=== PATIENT | female | born 1990 | race American Indian/Alaskan Native ===

== ENCOUNTER 2018-12-18 03:39 | Emergency (ER) | payer OTHER ==
[2018-12-18] MEDS ORDERED: BSS ONE ×2 (04:00→04:02)
[2018-12-18] MEDS ORDERED: FUL-GLO OP ONE ×3 (04:00→04:17)
[2018-12-18] MEDS ORDERED: TETRACAINE 0.5% ONE (04:02)
[2018-12-18 04:19] VITALS: BP 127/82
--- NOTE | 2018-12-18 04:23 | Emergency Department Report ---
Eye Injury/Foreign Body - HPI Duration: 2 Days Eye Location: Left Severity: Mild Tetanus Status: Up to Date Eye Symptoms: Eye Pain: Yes (eye latch in eye ), Blurred Vision: No, Eye Redness: Yes, Used Eye Protection: No, Contact Lens Use: No, Recalls Injury: No, Photophobia: No Other History: pt is a 28 y/o aaf who presents for left eye pain erythema secondary to eyelatch in eye pt states she remove latch but feels irritation nad burning since. there is no loss or decrease in vison no purulent drainage no swelling visual aqcuity is 20/20 bilat ED Review of Systems ROS: Stated complaint: LEFT EYE SWOLLEN Other details as noted in HPI Constitutional: denies: chills, fever Eyes: eye pain, eye discharge, other (redness ) ENT: denies: ear pain, throat pain Respiratory: denies: cough, shortness of breath, wheezing Cardiovascular: denies: chest pain, palpitations Endocrine: no symptoms reported Gastrointestinal: denies: abdominal pain, nausea, vomiting, diarrhea Genitourinary: denies: urgency, dysuria, discharge Musculoskeletal: denies: back pain, joint swelling, arthralgia Skin: denies: rash, lesions Neurological: denies: headache, weakness, paresthesias Psychiatric: denies: anxiety, depression Hematological/Lymphatic: denies: easy bleeding, easy bruising ED Past Medical Hx - Past Medical History Previous Medical History?: Yes Hx Headaches / Migraines: Yes (Topamaxx) - Surgical History Past Surgical History?: No - Social History Smoking Status: Never Smoker - Medications Home Medications: Home Medications Medication Instructions Recorded Confirmed Last Taken Type Acetaminophen [Acetaminophen TAB] 1,000 mg PO Q6HR PRN 7 Days #30 12/18/18 Unknown Rx tablet Ibuprofen [Motrin 800 MG tab] 800 mg PO Q8HR PRN #30 tablet 12/18/18 Unknown Rx Ketotifen Fumarate [Zaditor] 2 drops OP DAILY PRN 10 Days #5 12/18/18 Unknown Rx drops Ofloxacin 0.3% [Ocuflox 0.3% opth] 500 drops OP Q3H 10 Days #1 bottle 12/18/18 Unknown Rx Eye Injury Exam - Exam General: Vital signs noted. No distress. Alert and acting appropriately. - Visual Acuity Bilateral Vision Acuity Degree: 20/20 Eye Exam: Left Injection, Left Mucous Discharge, Left Fluorescein Uptake, Both EOMI, Neither Chemosis, Neither Abnormal Pupil, Neither Eye Foreign Body, Neither Lid Foreign Body, Neither Purulent Discharge, Neither Corneal Edema, Neither Photophobia Exam: left eye small corneal abrsion Left Vision Acuity Degree: 20/50 Right Vision Acuity Degree: 20/20 ED Course Vital Signs 12/18/18 03:44 Temperature 98.0 F Pulse Rate 90 Respiratory 18 Rate Blood Pressure 127/82 O2 Sat by Pulse 99 Oximetry ED Medical Decision Making - Medical Decision Making this is conjunctivitis left no increase IOP, visual acuity 20/20 bilat, moderater left conjunctivae erythema no swelling eyelid inverted and swept, mild clear drainage there is no feve no chills no symptoms. Critical care attestation.: If time is entered above; I have spent that time in minutes in the direct care of this critically ill patient, excluding procedure time. ED Disposition Clinical Impression: Cornea abrasion Qualifiers: Encounter type: initial encounter Laterality: left Qualified Code(s): S05.02XA - Injury of conjunctiva and corneal abrasion without foreign body, left eye, initial encounter Conjunctivitis Qualifiers: Conjunctivitis type: acute Acute conjunctivitis type: unspecified Laterality: left Qualified Code(s): H10.32 - Unspecified acute conjunctivitis, left eye Disposition: TO HOME OR SELFCARE Is pt being admited?: No Does the pt Need Aspirin: No Condition: Stable Instructions: Conjunctivitis (ED), Corneal Abrasion (ED) Prescriptions: Acetaminophen [Acetaminophen TAB] 1,000 mg PO Q6HR PRN 7 Days #30 tablet PRN Reason: Pain , Severe (7-10) Ibuprofen [Motrin 800 MG tab] 800 mg PO Q8HR PRN #30 tablet PRN Reason: pain Ofloxacin 0.3% [Ocuflox 0.3% opth] 500 drops OP Q3H 10 Days #1 bottle Ketotifen Fumarate [Zaditor] 2 drops OP DAILY PRN 10 Days #5 drops PRN Reason: . Forms: Work/School Release Form(ED) Time of Disposition: 04:41
== END 2018-12-18 04:55 | disposition home or self-care (01) ==
LOC: ED 03:39
DX: S05.02XA Injury of conjunctiva and corneal abrasion without foreign body, left eye, initial encounter (principal); H10.32 Unspecified acute conjunctivitis, left eye; G43.909 Migraine, unspecified, not intractable, without status migrainosus; Z79.1 Long term (current) use of non-steroidal anti-inflammatories (NSAID); Z79.899 Other long term (current) drug therapy; X58.XXXA Exposure to other specified factors, initial encounter; Y93.89 Activity, other specified; Y92.89 Other specified places as the place of occurrence of the external cause; Y99.8 Other external cause status
CPT/HCPCS: 99283

== ENCOUNTER 2019-01-16 21:19 | Emergency (ER) | payer OTHER ==
[2019-01-16 21:29] VITALS: BP 142/80
[2019-01-16] MEDS ORDERED: MORPHINE IV ONE (22:27)
[2019-01-16] MEDS ORDERED: ZOFRAN IV ONE (22:27)
[2019-01-16] MEDS ORDERED: NACL 0.9% 1000 ML 1,000 ML IV ONE (22:28)
--- NOTE | 2019-01-16 22:40 | Emergency Department Report ---
ED General Adult HPI - General Chief complaint: Animal Bite Stated complaint: INSECT BITE Time Seen by Provider: 01/16/19 22:26 Source: patient Mode of arrival: Ambulatory Limitations: No Limitations - History of Present Illness Initial comments: 28-year-old -[place] female presents to the emergency room for spider bite to the right upper thigh 4 days. Patient reports pain is sensitive to touch feels like it's burning. Patient has a past medical history of migraines. Currently takes no medications on a daily basis and has an allergy to a moxicillin. Onset/Timin -: days(s) Location: lower extremity Severity scale (0 -10): 10 Quality: burning, stabbing, aching, sharp Consistency: constant Improves with: none Worsens with: none Associated Symptoms: denies other symptoms Treatments Prior to Arrival: none - Related Data Previous Rx's Medication Instructions Recorded Last Taken Type Acetaminophen [Acetaminophen TAB] 1,000 mg PO Q6HR PRN 7 Days #30 12/18/18 Unknown Rx tablet Ibuprofen [Motrin 800 MG tab] 800 mg PO Q8HR PRN #30 tablet 12/18/18 Unknown Rx Ketotifen Fumarate [Zaditor] 2 drops OP DAILY PRN 10 Days #5 12/18/18 Unknown Rx drops Ofloxacin 0.3% [Ocuflox 0.3% opth] 500 drops OP Q3H 10 Days #1 bottle 12/18/18 Unknown Rx Acetaminophen/Codeine [Tylenol 1 tab PO Q6H PRN #12 tab 01/17/19 Unknown Rx /Codeine # 3 tab] DOXYCYCLINE Hyclate [Vibramycin 100 mg PO Q12HR #20 capsule 01/17/19 Unknown Rx CAP] Allergies Allergy/AdvReac Type Severity Reaction Status Date / Time amoxicillin AdvReac Itching Verified 01/16/19 21:21 ED Review of Systems ROS: Stated complaint: INSECT BITE Other details as noted in HPI Comment: All other systems reviewed and negative ED Past Medical Hx - Past Medical History Previous Medical History?: Yes Hx Headaches / Migraines: Yes (Topamaxx) - Surgical History Past Surgical History?: Yes - Social History Smoking Status: Never Smoker Substance Use Type: None - Medications Home Medications: Home Medications Medication Instructions Recorded Confirmed Last Taken Type Acetaminophen [Acetaminophen TAB] 1,000 mg PO Q6HR PRN 7 Days #30 12/18/18 Unknown Rx tablet Ibuprofen [Motrin 800 MG tab] 800 mg PO Q8HR PRN #30 tablet 12/18/18 Unknown Rx Ketotifen Fumarate [Zaditor] 2 drops OP DAILY PRN 10 Days #5 12/18/18 Unknown Rx drops Ofloxacin 0.3% [Ocuflox 0.3% opth] 500 drops OP Q3H 10 Days #1 bottle 12/18/18 Unknown Rx Acetaminophen/Codeine [Tylenol 1 tab PO Q6H PRN #12 tab 01/17/19 Unknown Rx /Codeine # 3 tab] DOXYCYCLINE Hyclate [Vibramycin 100 mg PO Q12HR #20 capsule 01/17/19 Unknown Rx CAP] ED Physical Exam - General Limitations: No Limitations General appearance: alert, in no apparent distress - Head Head exam: Present: atraumatic, normocephalic - Eye Eye exam: Present: normal appearance - ENT ENT exam: Present: mucous membranes moist - Respiratory Respiratory exam: Present: normal lung sounds bilaterally. Absent: respiratory distress - Cardiovascular Cardiovascular Exam: Present: tachycardia - Neurological Exam Neurological exam: Present: alert, oriented X3 - Psychiatric Psychiatric exam: Present: normal affect, normal mood - Expanded Skin Exam Expanded Type of lesion: Present: abscess Distribution of rash: RLE (anterior thigh) Description of rash: Present: tenderness, erythematous, swelling, fluctuant, indurated, other (Center of wound is necrotic) ED Course Vital Signs 01/16/19 01/16/19 01/16/19 21:26 23:13 23:43 Temperature 98.4 F Pulse Rate 96 H Respiratory 18 16 16 Rate Blood Pressure 142/80 O2 Sat by Pulse 100 Oximetry - I & D Right Anterior Thigh Blade Size: 11 I & D Procedure: betadine prep, sterile drapes applied, sterile dressing applied Progress: Patient tolerated procedure well. ED Medical Decision Making - Lab Data Result diagrams: 01/16/19 22:30 01/16/19 22:30 - Medical Decision Making 28-year-old female comes in for spider bite to the right upper thigh. Appears to have necrotic center. Had Dr. Lynn attending M.D. in ER to come and evaluate patient. Basic labs has been placed with ESR and lactic acid as well as normal saline and Zofran and morphine for pain management. Patient was given 600 mg of clindamycin 1 mg of Ativan morphine 4 mg Zofran 4 mg INT right thigh. Patient be discharged home on doxycycline Tylenol 3 she has ibuprofen at home. Patient be referred to Wound Care clinic. Critical care attestation.: If time is entered above; I have spent that time in minutes in the direct care of this critically ill patient, excluding procedure time. ED Disposition Clinical Impression: Cellulitis of third toe, right Disposition: [id number] TO HOME OR SELFCARE Is pt being admited?: No Does the pt Need Aspirin: No Condition: Stable Additional Instructions: Completes her antibiotics as prescribed. Pain medication as needed. You can follow up at the wound clinic I have listed their information below. Prescriptions: Acetaminophen/Codeine [Tylenol /Codeine # 3 tab] 1 tab PO Q6H PRN #12 tab PRN Reason: Pain , Severe (7-10) DOXYCYCLINE Hyclate [Vibramycin CAP] 100 mg PO Q12HR #20 capsule Referrals: ANTONELLA OSBORNE MD [Primary Care Provider] - 3-5 Days [facility] [Outside] - 3-5 Days
[2019-01-16 22:58] LABS: Hematocrit 37.5 % (30.3-42.9); Hemoglobin 12.9 gm/dl (10.1-14.3); Mean Corpuscular HGB Conc 34 % (30-34); Mean Corpuscular Volume 99 fl (79-97); Platelet Count 287 K/mm3 (140-440); Red Cell Distribution Width 12.7 % (13.2-15.2)
[2019-01-16 23:11] LABS: Alanine Aminotransferase 9 units/L (7-56); Albumin 4.4 g/dL (3.9-5); BUN/Creatinine Ratio 13; Blood Urea Nitrogen 8 mg/dL (7-17); Calcium 9.3 mg/dL (8.4-10.2); Hemolysis Index 3
[2019-01-16 23:18] LABS: Erythrocyte Sedimentation Rate 31 mm/Hr (0-20)
[2019-01-16] MEDS ORDERED: ATIVAN IV ONE (23:32)
[2019-01-16] MEDS ORDERED: CLEOCIN 600 MG/50 mL 600 MG/50 ML BAG IV ONE (23:32)
[2019-01-17] MEDS ORDERED: XYLOCAINE 1% MPF 5 mL INFILTRATI ONE (00:11)
== END 2019-01-17 01:20 | disposition home or self-care (01) ==
LOC: ED 21:19
DX: L03.115 Cellulitis of right lower limb (principal)
CPT/HCPCS: 10060; 36415; 80053; 82140; 85027; 85652; 96365; 96375; 99283; J2060; J2270; J2405; J7030